=== PATIENT | male | born 1990 | race American Indian/Alaskan Native ===

== ENCOUNTER 2020-10-21 22:36 | Emergency (ER) | payer SELFPAY ==
[2020-10-21] MEDS ORDERED: SODIUM CHLORIDE 0.9% 1000 ML 1,000 ML IV ONE (22:39)
[2020-10-21] MEDS ORDERED: ONDANSETRON 4 MG/2 ML INJ IV ONE (22:41)
[2020-10-21] MEDS ORDERED: fentaNYL 100 MCG/2 ML INJ ONE (22:42)
[2020-10-21] MEDS ORDERED: TETANUS,DIPH,PERTUSS(ACELL) VACCINE 0.5 ML SYRINGE IM ONE (22:43)
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
[2020-10-21] MEDS ORDERED: fentaNYL 100 MCG/2 ML INJ IV ONE (23:41)
[2020-10-21] MEDS ORDERED: AMPICILLIN/SULBACTA 1.5GM/50ML 1.5 GM/50 ML BAG IV ONE (23:43)
[2020-10-21 23:48] LABS: Basophils % (Auto) 0.6 % (0.0-1.8); Eosinophils # (Auto) 0.1 K/mm3 (0.0-0.4); Eosinophils % (Auto) 2.4 % (0.0-4.3); Hematocrit 38.6 % (35.5-45.6); Lymphocytes # (Auto) 2.2 K/mm3 (1.2-5.4); Lymphocytes % (Auto) 37.8 % (13.4-35.0); Mean Corpuscular HGB Conc 34 % (32-34); Mean Corpuscular Volume 84 fl (84-94); Monocytes # (Auto) 0.8 K/mm3 (0.0-0.8); Monocytes % (Auto) 14.5 % (0.0-7.3); Platelet Count 245 K/mm3 (140-440); Red Blood Count 4.63 M/mm3 (3.65-5.03); Red Cell Distribution Width 14.4 % (13.2-15.2)
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
[2020-10-22 00:01] LABS: INR 1.12 (0.87-1.13)
[2020-10-22 00:07] LABS: BUN/Creatinine Ratio 14; Blood Urea Nitrogen 17 mg/dL (9-20); Calcium 8.8 mg/dL (8.4-10.2); Hemolysis Index 15
[2020-10-22] MEDS ORDERED: fentaNYL 250 MCG/5 ML INJ IV ONE (00:30)
[2020-10-22] MEDS ORDERED: fentaNYL 100 MCG/2 ML INJ IV ONE ×2 (01:42→02:00)
[2020-10-22 02:01] VITALS: BP 134/68
== END 2020-10-22 02:02 | disposition other institution (70) ==
LOC: ED 22:36
DX: S51.832A Puncture wound without foreign body of left forearm, initial encounter (principal); W34.00XA Accidental discharge from unspecified firearms or gun, initial encounter; Y93.89 Activity, other specified; Y92.89 Other specified places as the place of occurrence of the external cause; Y99.8 Other external cause status
CPT/HCPCS: 36415; 73206; 80048; 85025; 85610; 85730; 86850; 86900; 86901; 90471; 90715; 96361; 96365; 96375; 96376; 99285; J0295; J2405; J3010; J7030; Q9967